=== PATIENT | female | born 1955 | race Caucasian/White ===

== ENCOUNTER → 2018-06-23 11:13 | Outpatient (CLI) | payer MEDICAID, SELFPAY ==
[2018-06-23 12:51] LABS: Hematocrit 22.9 % (37.0-47.0); Hemoglobin 6.4 g/dL (12.2-16.2)
== END ==
PROVIDERS: Visit Provider Nurse Practitioner
DX: D64.9 Anemia, unspecified (principal)
CPT/HCPCS: 36415; 85014; 85018; 86850

== ENCOUNTER 2018-06-24 09:05 | Outpatient (CLI) | payer MEDICAID, SELFPAY ==
[2018-06-24] VITALS (18 sets, daily range): BP systolic 94–141; BP diastolic 50–75; PULSE 66–97; RESP 16–18; TEMP 36.6–36.9; O2SAT 96–99; BMI 19.1
--- NOTE | 2018-06-24 10:10 | PC.NURSE ---
1007 - TRANSFUSION RATE AT 100 ML/HR AT THIS TIME.
--- NOTE | 2018-06-24 11:23 | PC.NURSE ---
1037 - INCREASED RATE TO 150 ML/HR AT THIS TIME.
--- NOTE | 2018-06-24 11:26 | PC.NURSE ---
1107 - INCREASED RATE TO 200 ML/HR AT THIS TIME.
--- NOTE | 2018-06-24 12:02 | PC.NURSE ---
1155 - INCREASED RATE TO 250 ML/HR AT 1137.
--- NOTE | 2018-06-24 12:33 | PC.NURSE ---
1228 - TRANSFUSION STARTED AT 100 ML/HR AT THIS TIME.
--- NOTE | 2018-06-24 13:04 | PC.NURSE ---
1258 - RATE INCREASED TO 150 ML/HR AT THIS TIME.
--- NOTE | 2018-06-24 14:39 | PC.NURSE ---
1328 - INCREASED RATE TO 200 ML/HR AT THIS TIME.
--- NOTE | 2018-06-24 14:40 | PC.NURSE ---
RATE WAS INCREASED TO 250 ML/HR AT 1358.
[2018-06-24 15:31] LABS: Hematocrit 31.5 % (37.0-47.0); Hemoglobin 9.5 g/dL (12.2-16.2)
== END 2018-06-24 15:25 | disposition home or self-care (01) ==
LOC: INF 09:08
PROVIDERS: Visit Provider Nurse Practitioner
DX: D64.9 Anemia, unspecified (principal)
CPT/HCPCS: 36430; 85014; 85018; P9016